=== PATIENT | male | born 1985 | race Caucasian/White ===

== ENCOUNTER 2024-02-24 14:25 | Emergency (ER) | payer MEDICAID ==
[~2024-02-24] VITALS: Ht 177.8 cm; Wt 91.2 kg
[2024-02-24 14:32] VITALS: O2SAT 97
[2024-02-24 18:51] VITALS: BP 144/87; PULSE 89; RESP 18; TEMP 36.83628; O2SAT 97
== END 2024-02-24 19:00 | disposition home or self-care (01) ==
LOC: ER 14:25
DX: S90.424A Blister (nonthermal), right lesser toe(s), initial encounter (principal); R23.8 Other skin changes; E78.00 Pure hypercholesterolemia, unspecified; Z90.49 Acquired absence of other specified parts of digestive tract; Z86.73 Personal history of transient ischemic attack (TIA), and cerebral infarction without residual deficits; W57.XXXA Bitten or stung by nonvenomous insect and other nonvenomous arthropods, initial encounter; Y93.89 Activity, other specified; Y92.89 Other specified places as the place of occurrence of the external cause; Y99.8 Other external cause status
CPT/HCPCS: 93971; 99284